=== PATIENT | female | born 1955 | race Asian ===

== ENCOUNTER → 2019-04-19 | Outpatient (CLI) | payer OTHER ==
--- NOTE | 2019-04-19 12:19 | Diagnostic Imaging Report ---
EXAMINATION: Bone mineral density study. COMPARISON: None. HISTORY: Bilateral osteoarthritis of the knee, screening for osteoporosis DISCUSSION: Evaluation of the left hip and lumbar spine was performed utilizing a DEXA Hologic bone densitometer. The study is technically adequate. The left hip total bone mineral density is 0.734 gm/cm2, the T-score is -1.7, and the Z-score is -0.5. The left hip femoral neck bone mineral density is 0.626 gm/cm2, the T-score is -2.0, and the Z-score is -0.6. The lumbar spine total bone mineral density is 0.668 gm/cm2, the T-score is -3.4, and the Z-score is -1.8. IMPRESSION: 1. WHO classification of osteopenia for the left hip with increased risk of fracture. 2. WHO classification of osteoporosis for the lumbar spine with high risk of fracture. The patient's fracture risk is compared to an age-matched control. Medical evaluation for secondary causes of low bone bone mineral density may be appropriate. Correlate clinically for the necessity and timing of the next bone mineral density study. National [employer] recommendations: Initiate therapy to reduce fracture risk in postmenopausal women with -BMD t-scores below -2.0 by central DXA with no risk factors -BMD t-scores below -1.5 by central DXA with one or more risk factors (first deg relative with hip fracture, prior personal fracture, low body weight, smoking) -A prior vertebral or hip fracture AACE (Clinical Endocrinology) recommends treating the following: Postmenopausal women who have osteoporosis as diagnosed by fragility fractures or t scores -2.5 or below Postmenopausal women who have risk factors (including fh of hip fracture, low body weight, smoking, risk of falling, high bone turnover, advancing age) and borderline low BMD T scores of -1.5 or below Adequate intake of calcium (at least 1200mg/day) and vitamin D (400-800 IU/day). Regular weight bearing and muscle - strengthening exercises Avoid smoking and excessive alcohol Signed by: Dr. Ruel East M.D. on 04/19/2019 12:16 PM
== END ==
LOC: DX 08:32
PROVIDERS: ATTEND Specialist
DX: M17.0 Bilateral primary osteoarthritis of knee (principal)
CPT/HCPCS: 77080